=== PATIENT | female | born 1955 | race Caucasian/White ===

== ENCOUNTER 2016-12-16 09:25 | Emergency (ER) | payer SELFPAY ==
--- NOTE | 2016-12-16 09:54 | ER Document Report ---
ED Extremity Problem, Lower - General Chief Complaint: Leg Injury Stated Complaint: FALL Time Seen by Provider: 12/16/16 09:38 Mode of Arrival: Wheelchair Information source: Patient Notes: Patient is a 61-year-old female who presents to the ER today for left ankle pain after slipping on a wet floor that she was mopping yesterday and bending her ankle underneath her. Patient states that she has had pain since the injury with swelling and some bruising. She denies any numbness or tingling. TRAVEL OUTSIDE OF THE [place] IN LAST 30 DAYS: No - Related Data Allergies/Adverse Reactions: No Known Allergies Allergy (Verified 12/16/16 09:30) Home Medications: Current Home Medications Aspirin [Ecotrin] 81 mg PO DAILY 12/16/16 [History] Lansoprazole [Prevacid 15 Mg Odt Tablet] 15 mg PO [id number] 12/16/16 [History] Paroxetine HCl [Paxil] 20 mg PO DAILY 12/16/16 [History] Past Medical History - General Information source: Patient Last Menstrual Period: hyst - Social History Smoking Status: Current Every Day Smoker Frequency of alcohol use: None Drug Abuse: None Family History: Reviewed & Not Pertinent - Past Medical History Cardiac Medical History: Reports: Hx Hypertension - not on medication Renal/ Medical History: Denies: Hx Peritoneal Dialysis Past Surgical History: Reports: Hx Hysterectomy - Immunizations Hx Diphtheria, Pertussis, Tetanus Vaccination: No Review of Systems - Review of Systems Constitutional: No symptoms reported EENT: No symptoms reported Cardiovascular: No symptoms reported Respiratory: No symptoms reported Gastrointestinal: No symptoms reported Genitourinary: No symptoms reported Female Genitourinary: No symptoms reported Musculoskeletal: See HPI Skin: See HPI Hematologic/Lymphatic: No symptoms reported Neurological/Psychological: No symptoms reported Physical Exam - Vital signs Vitals: Temp Pulse Resp BP Pulse Ox 98.1 F 81 16 147/90 H 100 12/16/16 09:28 12/16/16 09:28 12/16/16 09:28 12/16/16 09:28 12/16/16 09:28 - Notes Notes: PHYSICAL EXAMINATION: GENERAL: Well-appearing and in no acute distress. HEAD: Atraumatic, normocephalic. EYES: Pupils equal round and reactive to light, extraocular movements intact, sclera anicteric, conjunctiva are normal. ENT: ear canals without erythema or foreign body, TMs pearly sahu with good bony landmarks, nares patent, oropharynx clear without exudates. Moist mucous membranes. NECK: Normal range of motion, supple without lymphadenopathy LUNGS: CTAB and equal. No wheezes rales or rhonchi. HEART: Regular rate and rhythm without murmurs EXTREMITIES: Decreased range of motion of the left ankle secondary to pain, tender over left lateral malleolus, no pitting edema. No cyanosis. NEUROLOGICAL: Cranial nerves grossly intact. Normal sensory/motor exams. PSYCH: Normal mood, normal affect. SKIN: Warm, Dry, normal turgor, edema noted to left lateral ankle, ecchymosis noted Course - Re-evaluation Re-evalutation: 12/16/16 12:53 X-ray reports distal fibula fracture, minimally displaced. Patient placed in an ankle splint, called Ortho from a room and made appointment for 4 days from now. - Vital Signs Vital signs: Temp Pulse Resp BP Pulse Ox 98.1 F 60 18 145/81 H 95 12/16/16 11:25 12/16/16 11:25 12/16/16 11:25 12/16/16 11:25 12/16/16 11:25 Discharge - Discharge Clinical Impression: Left fibular fracture Qualifiers: Encounter type: initial encounter Fibula location: distal Fracture type: closed Fracture morphology: unspecified fracture morphology Qualified Code(s): S82.832A - Other fracture of upper and lower end of left fibula, initial encounter for closed fracture Condition: Stable Disposition: HOME, SELF-CARE Additional Instructions: Please see ortho, call today for an appt. Prescriptions: Hydrocodone/Acetaminophen [Barnard 5-325 mg Tablet] 1 tab PO Q4 PRN #15 tablet PRN Reason: Referrals: NATHAN ARAUJO MD [ACTIVE STAFF] - Follow up as needed
--- NOTE | 2016-12-16 10:37 | RADIOLOGY REPORT (SQ) ---
EXAM DESCRIPTION: ANKLE LEFT COMPLETE COMPLETED DATE/TIME: 12/16/2016 10:12 am REASON FOR STUDY: fall, injury, pain COMPARISON: None. NUMBER OF VIEWS: Three views. TECHNIQUE: AP, lateral, and oblique radiographic images acquired of the left ankle. LIMITATIONS: None. FINDINGS: MINERALIZATION: Normal. BONES: There is an oblique fracture of the distal fibula with minimal displacement and no angulation. JOINTS: No effusions. SOFT TISSUES: No soft tissue swelling. No foreign body. OTHER: No other significant finding. IMPRESSION: Distal fibular fracture. TECHNICAL DOCUMENTATION: JOB ID: [id number] [employer]- All Rights Reserved
[2016-12-16 11:26] VITALS: BP 145/81
== END 2016-12-16 12:04 | disposition home or self-care (01) ==
LOC: ER 09:25
PROC: 2W3RX1Z Immobilization of Left Lower Leg using Splint (ICD-10-PCS; principal; 2016-12-16)
DX: S82.832A Other fracture of upper and lower end of left fibula, initial encounter for closed fracture (principal); W19.XXXA Unspecified fall, initial encounter; Z79.899 Other long term (current) drug therapy; F17.200 Nicotine dependence, unspecified, uncomplicated
CPT/HCPCS: 99283